=== PATIENT | female | born 1985 | race Caucasian/White ===

== ENCOUNTER 2023-07-03 15:49 | Emergency (ER) | payer OTHER ==
[2023-07-03] MEDS ORDERED: SODIUM CHLORIDE 1,000 ML IV STA (16:06)
[2023-07-03 16:11] VITALS: BP 120/81; PULSE 86; RESP 18; TEMP 97.8; BMI 34.5
[2023-07-03 16:52] LABS: HEMATOCRIT 45.4 % (32.4-45.2); HEMOGLOBIN 14.9 G/dL (10.7-15.3); MCH 27.4 pg (25.7-33.7); MCHC 32.8 g/dl (32.0-36.0); MEAN CELL VOLUME 83.4 fl (80-96); MEAN PLT VOLUME 10.4 fl (7.5-11.1); PLATELET COUNT 228.8 10^3/uL (134-434); RBC 5.44 10^6/uL (3.60-5.2); RDW 14.4 % (11.6-15.6); WHITE BLOOD COUNT 7.5 10^3/uL (4.0-10.8)
[2023-07-03 16:55] LABS: HCG,QUALITATIVE URINE Negative
[2023-07-03 17:07] LABS: ALBUMIN 4.9 g/dl (3.4-5.0); BILIRUBIN,TOTAL 0.5 mg/dl (0.2-1); CALCIUM 10.1 mg/dl (8.5-10.1); CREATININE 0.6 mg/dl (0.6-1.3); POTASSIUM 3.9 mmol/L (3.5-5.1); TOT PROT 7.8 g/dl (6.4-8.2)
[2023-07-03 17:23] LABS: EPITHELIAL CELLS 0-5 /hpf
[2023-07-03] MEDS ORDERED: ONDANSETRON *ODT* 4 MG TABLET ONE (17:52)
[2023-07-03 18:54] LABS: PLATELET ESTIMATE ADEQUATE
== END 2023-07-03 18:12 | disposition home or self-care (01) ==
LOC: FER 15:49
PROC: 3E0337Z Introduction of Electrolytic and Water Balance Substance into Peripheral Vein, Percutaneous Approach (ICD-10-PCS; principal; 2023-07-03)
DX: R11.2 Nausea with vomiting, unspecified (principal); K52.9 Noninfective gastroenteritis and colitis, unspecified; Z20.822 Contact with and (suspected) exposure to COVID-19
CPT/HCPCS: 0241U-QW; 36415; 80053; 81003; 81015; 84703; 85027; 87651; 99284-25